=== PATIENT | male | born 1950 | race Caucasian/White ===

== ENCOUNTER → 2024-03-16 07:46 | Outpatient (REF) | payer MEDICARE, OTHER, SELFPAY | LOC: RCS 07:46 | PROVIDERS: ATTENDING PHYSICIAN Internal Medicine Cardiovascular Disease; FAMILY PHYSICIAN Family Medicine | DX: I34.0 Nonrheumatic mitral (valve) insufficiency (principal) | CPT/HCPCS: 93306 ==

== ENCOUNTER → 2024-05-14 11:03 | Outpatient (REF) | payer MEDICARE, OTHER, SELFPAY | LOC: RAD 11:03 | PROVIDERS: ATTENDING PHYSICIAN Student in an Organized Health Care Education/Training Program; FAMILY PHYSICIAN Specialist | DX: I48.91 Unspecified atrial fibrillation (principal) | CPT/HCPCS: 75572; Q9967 ==

== ENCOUNTER → 2024-06-19 09:00 | Outpatient (REF) | payer MEDICARE, OTHER, SELFPAY | LOC: SDSPAT 09:00 | PROVIDERS: ATTENDING PHYSICIAN Internal Medicine Cardiovascular Disease; FAMILY PHYSICIAN Family Medicine; OTHER PHYSICIAN Student in an Organized Health Care Education/Training Program | DX: I48.21 Permanent atrial fibrillation (principal) | CPT/HCPCS: 93005 ==

== ENCOUNTER 2024-07-01 10:04 | Day surgery (SDC) | payer MEDICARE, OTHER, SELFPAY ==
[2024-06-19 08:50] VITALS: BMI 25.5
--- NOTE | 2024-06-19 09:10 | HPS.HSE ---
Family Physician
-
Family Physician: NO INTERVIEW UNKNOWN
Chief Complaint
-
Persistent atrial fibrillation.
History of Present Illness
The patient is a 74 year old male presenting today for persistent atrial fibrillation. The patient reports no significant symptoms associated with his arrhythmia. He previously underwent an ablation for this diagnosis in 2009. He is rate
controlled without the current use of pharmacological therapy. He is compliant with Dabigatran for oral anticoagulation due to a CHADS-VASc of 4. He was previously diagnosed with prostate cancer, for which he underwent a radical perineal
prostatectomy and radiation therapy in 2022. His urologist, Dr. Trev Xiao, has expressed concerns for future severe prostate bleeding while he remains on oral anticoagulation. His HAS-BLED score is 3. Given that he is at an increased risk for
thromboembolic events as well as bleeding with continued Dabigatran use, it is recommended he proceed with Watchman implantation. In preparation for future Watchman, he will undergo a transesophageal echocardiogram first. He denies any current
complaints today such as chest pain, shortness of breath at rest, nausea, vomiting, diarrhea, lightheadedness, dizziness, cough, sore throat, or fever.
Medical History
Past Medical History
Past Medical History: Reports Other
Additional Past Medical History:
1. Persistent atrial fibrillation, status post ablation 2009; oral anticoagulation with Dabigatran.
2. Hypertension.
3. Hypercholesterolemia.
4. Coronary artery disease.
5. Mild mitral valve prolapse.
6. Moderate mitral regurgitation.
7. Mild aortic regurgitation.
8. Moderate tricuspid regurgitation.
9. Asthma, mild and persistent.
10. Bronchitis per chest CT 04/2024.
11. Right upper lobe pulmonary nodule.
12. Hepatic and splenic cysts.
13. 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
14. Vestibular schwannoma, status post resection 1993, with residual right sided facial droop.
15. Balance difficulties.
16. Chronic compression fracture of L1.
17. Multilevel degenerative disc disease.
18. Osteoarthritis.
19. Prostate cancer, 2022, status post radical perineal prostatectomy and radiation.
20. Daily alcohol.
Past Surgical History: Reports Other
Additional Past Surgical History:
1. Cardiac catheterization and atrial fibrillation ablation.
2. Transesophageal echocardiogram.
3. Vestibular schwannoma excision.
4. Radical perineal prostatectomy.
5. Colonoscopy.
Social History
Tobacco: Non-smoker
Alcohol: Daily (He reportedly drinks 1- 5oz glass of wine daily. )
Personal:
Living: Other (He lives with his in a 2 story home. )
Family History
Family History: Not pertinent
Allergies / Home Medications
Allergy/Medication List:
Home medications:
1. Albuterol sulfate 2 puffs inhaled four times a day as needed.
2. Atorvastatin 80 mg p.o. at 2 PM.
3. Dabigatran 150 mg p.o. twice a day.
4. Fluticasone propionate 1 spray intranasal daily.
5. Montelukast 10 mg p.o. daily.
6. Tamsulosin 0.4 mg p.o. at bedtime.
7. Trelegy Ellipta 100-62.5-25 mcg inhaler, 1 inhalation at bedtime.
Allergies: Environmental. No known drug allergies.
Review of Systems
-
A 12 point ROS was completed and negative except as noted: Yes
Physical Exam
Vital Signs
Blood pressure: 157/86. Heart rate 56. Respirations 18. Pulse ox 97% on room air.
Height 5 feet, 7 inches. Weight 73.7 kg. BMI 25.4.
Physical Exam
General: Well Developed, Well Nourished and No Apparent Distress
HEENT: Moist mucous membranes, PERRLA, Hearing Impaired and Other (Chronic right sided facial droop. )
Respiratory: Other (Wheeze of bilateral lung apices, cleared with cough. )
Cardiac: Irregular Rhythm
GI: Soft, Non Tender and Non Distended
Musculoskeletal: No Edema and Normal Gait & Station
Skin: Warm and Dry
Neuro: AO x 3 and Nonfocal/grossly intact
Laboratory Results
-
EKG 06/19/2024: Atrial fibrillation with slow ventricular response. Left anterior fascicular block.
Echocardiogram 03/16/2024: Normal left ventricular size and systolic function. Mild concentric left ventricular hypertrophy. LV ejection fraction is 60-65% by Tenorio's method of discs. Mildly dilated right ventricle with normal systolic function.
Severely dilated right atrium. Mild prolapse of the posterior mitral valve leaflet. Moderate mitral regurgitation. Aortic sclerosis without stenosis. Mild aortic regurgitation. Moderate tricuspid regurgitation. Estimated pulmonary artery pressure of
53 mmHg, assuming a right atrial pressure of 8 mmHg. Mildly dilated aortic root and ascending aorta. No significant change since the prior study of 10/11/2020.
Impression/Plan
-
IMPRESSION/PLAN:
1. Persistent atrial fibrillation: In preparation for future Watchman implant, the patient will undergo a transesophageal echocardiogram with Dr. Ailin Allen on 07/01/2024. The benefits and risks of the procedure have been explained to the
patient. The patient understands these risks and wishes to proceed.
[2024-07-01] MEDS: PRADAXA 150 MG PO (11:55)
== END 2024-07-01 11:58 | disposition home or self-care (01) ==
LOC: CATH 10:04
PROVIDERS: ATTENDING PHYSICIAN Internal Medicine Cardiovascular Disease; FAMILY PHYSICIAN Family Medicine; OTHER PHYSICIAN Internal Medicine Cardiovascular Disease
DX: I48.19 Other persistent atrial fibrillation (principal); Z79.02 Long term (current) use of antithrombotics/antiplatelets; Z85.46 Personal history of malignant neoplasm of prostate; Z90.79 Acquired absence of other genital organ(s); Z92.3 Personal history of irradiation; I10 Essential (primary) hypertension; E78.00 Pure hypercholesterolemia, unspecified; I25.10 Atherosclerotic heart disease of native coronary artery without angina pectoris; I08.3 Combined rheumatic disorders of mitral, aortic and tricuspid valves; J45.909 Unspecified asthma, uncomplicated; Z86.73 Personal history of transient ischemic attack (TIA), and cerebral infarction without residual deficits; M19.90 Unspecified osteoarthritis, unspecified site; I70.0 Atherosclerosis of aorta
CPT/HCPCS: 93312; 93320; 93325

== ENCOUNTER 2024-08-18 05:52 | Inpatient (IN) | payer MEDICARE, OTHER, SELFPAY ==
[2024-08-11 10:03] VITALS: BMI 25.8
[2024-08-11 10:37] LABS: % Basophils 1.4 % (0-2); % Eosinophils 9.4 % (0-6); % Immature Granulocytes 0.2 % (0-0.5); % Lymphocytes 17.1 % (20.5-51.1); % Monocytes 12.7 % (1.7-9.3); % Neutrophils 59.2 % (42.2-75.2); Absolute Basophils 0.1 10^3/uL (0-0.2); Absolute Eosinophils 0.4 10^3/uL (0-0.7); Absolute Lymphocytes 0.7 10^3/uL (1.2-3.4); Absolute Monocytes 0.6 10^3/uL (0.1-0.6); Absolute Neutrophils 2.6 10^3/uL (1.4-6.5); Hematocrit 37.6 % (39.0-52.0); Hemoglobin 12.2 g/dL (13.0-18.0); INR 1.19; Mean Corp Hgb Conc. 32.4 g/dL (33.0-37.0); Mean Corpuscular Hgb 29.2 pg (27.0-31.0); Nucleated Red Blood Cells % 0 % (-); PT 15.4 Sec (11.4-14.6); Platelet Count 133 10^3/uL (130-400); Red Blood Cell Count 4.18 10^6/uL (4.70-6.10); Red Cell Dist. Width 14.6 % (11.5-14.5); White Blood Cell Count 4.3 10^3/uL (4.8-10.8)
[2024-08-11 10:50] LABS: ALT (SGPT) 25 U/L (0-50); AST (SGOT) 26 U/L (17-59); Alkaline Phosphatase 103 U/L (38-126); Blood Urea Nitrogen 16 mg/dl (9-20); Carbon Dioxide 26 mmol/L (22-30); Chloride 106 mmol/L (98-107); Estimated Creatinine Clearance 76 ml/min; Glucose 101 mg/dl (70-99); Potassium 4.2 mmol/L (3.5-5.1); Sodium 139 mmol/L (135-145); Total Bilirubin 1.3 mg/dl (0.2-1.3); Total Protein 6.7 g/dl (6.3-8.2); eGFR > 60.00
[2024-08-18] VITALS (24 sets, daily range): BP systolic 132–160; BP diastolic 76–100
--- NOTE | 2024-08-18 09:01 | ITS.CL.PN ---
[facility] - Procedure Note
Procedure
Procedure Note:
WATCHMAN LEFT ATRIAL APPENDAGE OCCLUSION REPORT
Date of Procedure: 08/18/2024
Referring: Dr. Luis Nieves MD
Indication: atrial fibrillation with high bleeding risk and high stroke risk
Operators: Rafal Black MD, PhD (interventional cardiology); Dr. Dudley Olsen (electrophysiology); Dr. Dereje Colon DO (cardiac imaging)
Anesthesia: general anesthesia provided by the anesthesia staff
PROCEDURE: left atrial appendage occlusion with a 31 mm Watchman FLX
ACCESS: 14F right common femoral vein (closure: figure of eight stitch)
ULTRASOUND GUIDED VASCULAR ACCESS (right femoral vein): Ultrasound was utilized for vascular access. The vessel was visualized under ultrasound and noted to be patent. An image of the vessel was stored permanently in the patient's medical record.
Under direct ultrasound guidance, vascular access was obtained using a modified Seldinger technique and a [ ] Mosotho sheath was placed.
HEMODYNAMIC DATA: LA 9 mmHg (increased to 16 mmHg after 250 cc fluid bolus)
PROCEDURE NARRATIVE:
The patient was intubated and sedated by anesthesiology and then prepped and draped in standard sterile fashion. A KATY probe was placed by cardiology and imaging performed demonstrating no left atrial appendage thrombus and no pericardial effusion.
Under ultrasound guidance, the right femoral vein was accessed by Dr. Black with a 9F sheath placed. 3000 units heparin was administered.
The9F sheath was exchanged over a [employer] A RF wire for the Watchman double curve sheath which was advanced to the SVC. The Watchman sheath was then pulled back under fluoroscopic and echo guidance until an appropriate inferior and posterior position
on the septum was achieved. During brief RF application, the wire was advanced through the interatrial septum into the left atrium. The wire was placed in the left upper pulmonary vein as confirmed by fluoroscopy and KATY. The dilator and sheath
easily tracked across the septum allowing placement of the sheath in the left atrium. Left atrial pressure was measured at 9 mmHg. 250 cc fluid was administered and the left atrial pressure increased to 16 mmHg.
A 5F pigtail catheter was advanced through the sheath and placed in the left atrial appendage, and an appendage gram was performed demonstrating anatomy suitable for a 31 mm Watchman FLX device. The device was prepped on the back table, the pigtail
catheter removed, and the device delivered via the sheath to the left atrial appendage by Dr. Olsen. The device was deployed slowly under continuous fluoroscopic and KATY visualization. After deployment, KATY imaging was performed to assess PASS
criteria. The device demonstrated excellent positioning, anchor stability on tug test, appropriate sizing with 15-25% compression, and appropriate seal with no leak at 0, 45, 90, or 135 degrees. Given PASS criteria were met, the device was then
released.
The delivery system retracted back into the sheath and removed from the body. The sheath was retracted into the right atrium with KATY demonstrating no significant R-L shunt or pericardial effusion. The ICE catheter was removed from the body. The
sheaths were removed and the venotomy closed with [id number] knot. Protamine 40 mg was given. The patient was extubated and tolerated the procedure well.
RADIATION: dose 56.38 mGy; DAP 6.19 Gy*cm2; fluoroscopy time 8.0 min
CONCLUSIONS
1. transseptal puncture with KATY guidance
2. successful deployment of a 31 mm Watchman FLX device under fluoroscopic and KATY guidance
RECOMMENDATIONS:
1. anticoagulation with dabigatran 150 BID for 3 months
2. repeat KATY in 3 months
Copy to: Dr. Luis Nieves MD (rehab director occupational therapist); Dr. Michael Peña MD (PCP); Dr. Trev Xiao MD (Urologist)
Signed: Rafal Black MD, PhD
--- NOTE | 2024-08-18 09:08 | WATCHMAN.MD ---
Watchman Implant
-
Watchman DENNIS occlusion device implantation:
Mr. Olivares is a 74 yrs old man with high risk of bleeding and advised to stop anticoagulation therapy is here for Watchman implantation.
Date of Procedure:
08/18/24
Indications:
High risk of bleeding with anticoagulation therapy for stroke prevention
Pre-Operative Diagnosis:
Atrial fibrillation with high risk of bleeding
Post-Operative Diagnosis:
Atrial fibrillation with high risk of bleeding
Procedure Performed:
Left atrial appendage occlusion with Watchman implantation (31 mm Watchman FLX Pro left atrial appendage closure device)
Performing Physicians:
KATY: Dereje Colon M.D.
Transseptal doughnut machine operator helper: Rafal Black M.D.
Implanter: Dudley Olsen M.D.
Anesthesia:
See anesthesia records
Detailed Description of the Procedure:
Written informed consent was obtained from the patient after a full explanation of the risks and benefits of the procedure including the risks of sedation and anesthesia.
The patient was brought to the electrophysiology laboratory in stable condition in fasting state. Continuous electrocardiographic and hemodynamic monitoring was initiated.
The initial rhythm was atrial fibrillation.
The procedure site was meticulously prepared with surgical scrub and allowed to dry with no pooling. Sterile draping was applied to cover the procedure site. The image intensifier was draped with sterile bag and positioned over the patient. After
infusion of local anesthetic, vascular access was obtained under ultrasound guidance and sheaths were placed over guide wire as detailed below.
Sheath and Catheter Placement:
Sheaths:
��������������� Watchman delivery sheath via right femoral vein.
Catheters:
��������������� Watchman catheter
Trans-septal Puncture:
Heparin was initiated and infused to maintain appropriate ACT.
A VersaCross RF pigtail guidewire was advanced through the 8-Slovak sheath in the right femoral vein into the superior vena cava under fluoroscopic, KATY guidance. The 8Fr was upgraded the Watchman sheath and was advanced into the superior vena cava
over the guide wire. A transseptal VersaCross RF pigtail via Faradrive connect system was utilized to perform the trans-septal puncture. The apparatus was withdrawn until it was in contact with the fossa ovalis. The position was adjusted based on
fluoroscopy and ultrasound images from KATY. Under fluoroscopic, hemodynamic and KATY ultrasound guidance, left atrium was cannulated by applying the radiofrequency energy. The right atrial and left atrial pressure was monitored. A guide wire was
placed and was advanced into the left superior pulmonary vein. Both the sheath and the dilator was advanced into the left atrium. The dilator was withdrawn. Blood was aspirated from the sheath and arterial blood confirmed. The sheath was flushed.
Saline injection noted into the left atrium on KATY. The LA pressure was recorded. The saline injection was noted in the LA on the KATY. A curved pig tail was advanced over the guide wire into the left atrium and the wire was removed.
Left atrial appendage atriography:
The pigtail was advanced into the DENNIS and was confirmed on fluoroscopy and KATY. The contrast was injected and the DENNIS shape was recorded in GONZALES /Caudal view (21/21 degrees). The size of the DENNIS was again checked and confirmed reviewing the KATY and
the fluoroscopy along with previously obtained CT scan images.
Watchman Deployment:
The Watchman delivery sheath was advanced into the DENNIS over the pigtail till the right marker was at the location of the orifice line marked on the screen. The pigtail was removed and the Watchman delivery system was advanced through the sheath into
the DENNIS till it was aligned with the outer sheath marker inside the DENNIS. The watchman sheath was clicked with the outer sheath. Once acceptable location achieved, the outer sheath was pulled back keeping the device steady at the DENNIS location till a
ball of the device was formed under fluoroscopic guidance. The whole system was advanced further into the DENNIS till adequate depth is achieved into the DENNIS.� The DENNIS occluder was deployed and expanded adequately anchoring to the DENNIS. The device was
kept anchored with stable pressure to that location for 10 seconds.
The KATY image confirmed adequate expansion. The tug test was done that showed the device is anchored well and is not able to come out. The compression was 15% to 25% on the three sides. There was no significant leak noted on the Doppler via KATY.
A contrast injection was given that showed excellent occlusion of the DENNIS.
The device was deployed by unscrewing the Watchman device and releasing from the connecting wire. The wire was pulled back into the sheath and the sheath was pulled out of the LA.
Implanted device:
WATCHMAN FLX Pro � 31mm
Procedure End
KATY study was done again that showed no epicardial accumulation that was unchanged from earlier. A repeated images showed no change in the pericardial space. No complications noted.
Following the completion of the deployment, catheters were removed. Protamine 40 mg was given at the end of the procedure and ACT was checked repeatedly. The sheath was removed and hemostasis achieved with Figure of 8 suture and manual compression
after acceptable ACT is achieved.
Left atrial Pressure:
Mean LA pressure was 14mmHg
Estimated Blood loss:
10 cc
Specimens Removed:
None.
Implants / Devices:
None
Urine output:
None
Packs / Drains/ Tubes:
None
Instrument / Sponge Count Correct:
Yes
Complications of the Procedure:
None
Condition of Patient at Time of Transfer:
Hemodynamically stable with no neurological or vascular compromise.
Summary:
Successful implantation of the left atrial occlusion device (WATCHMAN FLX Pro� 31mm)
Post procedure Plan for anticoagulation:
Continue Pradaxa 150 mg BID for 3 months.
In 3 months, based on KATY, will plan to discontinue Pradaxa and start ASA 81 mg indefinitely. If no bleeding can use Plavix with ASA for initial 3 months.
[2024-08-18 11:09] LABS: ACT-LR - POC > 397 Seconds (116-155)
--- NOTE | 2024-08-18 14:35 | W.PN.UPDATE ---
Update Note
Progress Note Update
74 yo male s/p Watchman device (same day). He denies cp, sob, jayden diet, voiding, amb w/o dizziness, R fem site c/d/i no HT, soft, EKG Afib. He will continue Pradaxa until after f/u KATY in 3 mo. Activity restrictions reviewed. He will f/u DIRECTOR OF FUNDRAISING in 2
weeks. He is for d/c home after 2pm.
--- NOTE | 2024-08-18 14:49 | W.DS.TRANS ---
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
-
Discharge Instructions:
Discharge Diagnosis/Procedures Watchman implant
Diet Low Cholesterol
Driving Restrictions No driving for 24 hours
Others Tests Follow up KATY has been scheduled at [facility] on 11/11/2024. You will receive a call
from Dr. Olea's office to review date and
instructions.
Instructions:
Stand-Alone Forms: DC Instructions- Cath/EP Lab
Changes to Home Medications: No
Discharge Medications:
DC Medications w/original date entered in [facility]
montelukast 10 mg tablet 10 mg PO DAILY Allergies 11/18/18
fluticasone fur. 100 mcg-umeclid 62.5 mcg-vilant 25 mcg inhalat.powder (Trelegy Ellipta) 1 inh inhalation HS Lung/breathing issues 06/12/22
tamsulosin 0.4 mg capsule 0.4 mg PO HS 06/17/24
albuterol sulfate 90 mcg/actuation aerosol inhaler 2 puff inhalation QID PRN SOB 06/19/24
atorvastatin 80 mg tablet 80 mg PO DAILY@1400 06/19/24
fluticasone propionate 50 mcg/actuation nasal spray,suspension 1 spray intranasal DAILY 06/19/24
dabigatran etexilate 150 mg capsule (Pradaxa) 150 mg PO BID 08/06/24
Home Medication Changes
Pending Results: No
== END 2024-08-18 14:49 | disposition home or self-care (01) | DRG 274 ==
LOC: CATH-IN 05:52
PROVIDERS: Student in an Organized Health Care Education/Training Program; ADMITTING PHYSICIAN Internal Medicine Cardiovascular Disease; FAMILY PHYSICIAN Family Medicine
PROC: B24BZZ4 Ultrasonography of Heart with Aorta, Transesophageal (ICD-10-PCS; 2024-08-18)
PROC: 02L73DK Occlusion of Left Atrial Appendage with Intraluminal Device, Percutaneous Approach (ICD-10-PCS; 2024-08-18)
DX: I48.21 Permanent atrial fibrillation (principal); Z00.6 Encounter for examination for normal comparison and control in clinical research program; I51.3 Intracardiac thrombosis, not elsewhere classified; C61 Malignant neoplasm of prostate; I10 Essential (primary) hypertension; E78.5 Hyperlipidemia, unspecified; N40.0 Benign prostatic hyperplasia without lower urinary tract symptoms; J45.909 Unspecified asthma, uncomplicated; R91.1 Solitary pulmonary nodule; Z90.79 Acquired absence of other genital organ(s); Z86.73 Personal history of transient ischemic attack (TIA), and cerebral infarction without residual deficits; Z92.21 Personal history of antineoplastic chemotherapy; Z92.3 Personal history of irradiation; Z79.02 Long term (current) use of antithrombotics/antiplatelets
CPT/HCPCS: 33340; 36415; 80053; 85025; 85347; 85610; 86850; 86900; 86901; 93005; 93355; C1892; Q9967

== ENCOUNTER → 2024-10-12 09:52 | Outpatient (REF) | payer MEDICARE, OTHER, SELFPAY | LOC: RCS 09:52 | PROVIDERS: ATTENDING PHYSICIAN Nurse Practitioner; FAMILY PHYSICIAN Family Medicine | DX: R06.02 Shortness of breath (principal) | CPT/HCPCS: 93306 ==

== ENCOUNTER → 2024-10-20 11:09 | Outpatient (REF) | payer MEDICARE, OTHER, SELFPAY | LOC: RCS 11:09 | PROVIDERS: ATTENDING PHYSICIAN Nurse Practitioner; FAMILY PHYSICIAN Family Medicine | DX: R06.09 Other forms of dyspnea (principal); I48.91 Unspecified atrial fibrillation | CPT/HCPCS: 78452; 93017; A9500; J2785 ==

== ENCOUNTER → 2024-11-18 09:23 | Outpatient (REF) | payer MEDICARE, OTHER, SELFPAY | LOC: SDSPAT 09:23 | PROVIDERS: ATTENDING PHYSICIAN Internal Medicine Cardiovascular Disease; FAMILY PHYSICIAN Family Medicine | DX: I48.21 Permanent atrial fibrillation (principal) | CPT/HCPCS: 93005 ==

== ENCOUNTER 2024-12-02 07:38 | Day surgery (SDC) | payer MEDICARE, OTHER, SELFPAY ==
[2024-11-18 09:41] VITALS: BMI 26.6
== END 2024-12-02 12:02 | disposition home or self-care (01) ==
LOC: CATH 07:38
PROVIDERS: ATTENDING PHYSICIAN Internal Medicine Cardiovascular Disease; FAMILY PHYSICIAN Family Medicine; REFERRING PHYSICIAN Internal Medicine Cardiovascular Disease
DX: I48.19 Other persistent atrial fibrillation (principal); I08.3 Combined rheumatic disorders of mitral, aortic and tricuspid valves; Z86.73 Personal history of transient ischemic attack (TIA), and cerebral infarction without residual deficits; I10 Essential (primary) hypertension; E78.5 Hyperlipidemia, unspecified; C61 Malignant neoplasm of prostate; N40.0 Benign prostatic hyperplasia without lower urinary tract symptoms; J45.909 Unspecified asthma, uncomplicated; Z79.02 Long term (current) use of antithrombotics/antiplatelets
CPT/HCPCS: 93312; 93320; 93325

== ENCOUNTER → 2024-12-04 09:09 | Outpatient (REF) | payer MEDICARE, OTHER, SELFPAY | LOC: RAD 09:09 | PROVIDERS: ATTENDING PHYSICIAN Nurse Practitioner Acute Care; FAMILY PHYSICIAN Family Medicine; REFERRING PHYSICIAN Internal Medicine Cardiovascular Disease | DX: I48.0 Paroxysmal atrial fibrillation (principal) | CPT/HCPCS: 75572; Q9967 ==

== ENCOUNTER 2025-01-05 05:52 | Inpatient (IN) | payer MEDICARE, OTHER, SELFPAY ==
[2025-01-04 12:58] VITALS: BMI 25.5
--- NOTE | 2025-01-04 13:15 | HPS.HSE ---
Family Physician
-
Family Physician: Michael Peña
Chief Complaint
-
Permanent atrial fibrillation.
History of Present Illness
The patient is a 74 year old male presenting today for permanent atrial fibrillation. The patient reports no significant symptoms associated with his arrhythmia. He previously underwent an ablation for this diagnosis in 2009. He is rate
controlled without the current use of pharmacological therapy. He is compliant with Dabigatran for oral anticoagulation due to a CHADS-VASc of 3. He was previously diagnosed with prostate cancer, for which he underwent a radical perineal
prostatectomy and radiation therapy in 2022. His urologist, Dr. Trev Xiao, had expressed concerns previously for future severe prostate bleeding while the patient remains on oral anticoagulation. The patient's overall HAS-BLED score is 3. He
proceeded with a recommended Watchman implantation in July 2024. A post-Watchman transesophageal echocardiogram on 12/02/2024 revealed that the atrial appendage is bilobed and that one of the lobes was not fully isolated by Watchman device. A chest
CTA also confirmed this on 12/04/2024. He will proceed with a recurrent Watchman implantation in the hopes of coming off oral anticoagulation one day. He denies any current complaints today such as chest pain, shortness of breath at rest, nausea,
vomiting, diarrhea, lightheadedness, dizziness, cough, sore throat, or fever.
Medical History
Past Medical History
Past Medical History: Reports Other
Additional Past Medical History:
1. Permanent atrial fibrillation, status post ablation 2009, and Watchman implant 07/2024; oral anticoagulation with Dabigatran.
2. Hypertension.
3. Hypercholesterolemia.
4. Coronary artery disease.
5. Mild-moderate mitral regurgitation.
6. Mild aortic regurgitation.
7. Mild tricuspid regurgitation.
8. Pericardial effusion, asymptomatic.
8. Asthma, mild and persistent.
9. Bronchitis per chest CT 04/2024.
10. Right upper lobe pulmonary nodule.
11. Hepatic and splenic cysts.
12. 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
13. Vestibular schwannoma, status post resection 1993, with residual right sided facial palsy.
14. Balance difficulties.
15. Chronic compression fracture of L1.
16. Multilevel degenerative disc disease.
17. Osteoarthritis.
18. Prostate cancer, 2022, status post radical perineal prostatectomy and radiation.
19. BPH.
20. Chronic anemia.
21. Mild leukopenia and thrombocytopenia.
22. Daily alcohol.
Past Surgical History: Reports Other
Additional Past Surgical History:
1. Watchman implant
2. Cardiac catheterization and atrial fibrillation ablation.
3. Transesophageal echocardiogram x2.
4. Vestibular schwannoma excision.
5. Radical perineal prostatectomy.
6. Colonoscopy.
Social History
Tobacco: Non-smoker
Alcohol: Daily (He reportedly drinks 1- 5oz glass of wine daily. )
Personal:
Living: Other (He lives with his in a 2 story home.)
Family History
Family History: Not pertinent
Allergies / Home Medications
Allergy/Medication List:
Home medications:
1. Albuterol sulfate 2 puffs inhaled four times a day as needed.
2. Atorvastatin 80 mg p.o. at 2 PM.
3. Dabigatran 150 mg p.o. twice a day.
4. Fluticasone propionate 1 spray intranasal daily.
5. Montelukast 10 mg p.o. daily.
6. Tamsulosin 0.4 mg p.o. at bedtime.
7. Trelegy Ellipta 100-62.5-25 mcg inhaler, 1 inhalation at bedtime.
8. Furosemide 20 mg p.o. daily at 3 PM.
Allergies: Environmental. No known drug allergies.
Review of Systems
-
A 12 point ROS was completed and negative except as noted: Yes
Physical Exam
Vital Signs
Blood pressure: 131/68. Heart rate 62. Respirations 18. Pulse ox 99% on room air.
Height 5 feet, 7 inches. Weight 73.8 kg. BMI 25.5.
Physical Exam
General: Well Developed, Well Nourished and No Apparent Distress
HEENT: Moist mucous membranes, PERRLA, Hearing Impaired and Other (Chronic right sided facial droop. )
Respiratory: Clear
Cardiac: Irregular Rhythm
GI: Soft, Non Tender and Non Distended
Musculoskeletal: No Edema and Normal Gait & Station
Skin: Warm and Dry
Neuro: AO x 3 and Nonfocal/grossly intact
Laboratory Results
-
DIAGNOSTIC STUDIES as of 01/04/2025: White blood cell count 3.7. Hemoglobin 11.8. Platelet count 123,000. PT 16.5. INR 1.31. Sodium 138. Potassium 4.1. BUN 20. Creatinine 0.7. Glucose 102. Calcium 8.9. AST 26. ALT 22. Albumin 4.0. Type and screen O
positive.
Transesophageal echocardiogram 12/02/2024: Normal left ventricular systolic function. Estimated ejection fraction 55 to 60%. Watchman device intact. It appears atrial appendage is bilobed and one of the lobes is not fully isolated by Watchman
device. No evidence of thrombus in the left atrium the left atrial appendage. Mild to moderate eccentric mitral regurgitation. Mild aortic regurgitation. Mild tricuspid regurgitation. Small to moderate size pericardial effusion. Compared to the
previous echo from 10/12/2024, pericardial effusion is similar. May be slightly greater in size. Compared to the arminda-procedure KATY on 08/18/2024, an isolated area of the appendage is now reported.
Nuclear stress test 10/20/2024: No reversible defects to suggest ischemia. Moderate-sized perfusion defects involving the inferior and lateral aguilar suggestive of soft tissue attenuation. Ejection fraction 65%. Moderate risk study due to
pharmacologic stress.
Impression/Plan
-
IMPRESSION/PLAN:
1. Permanent atrial fibrillation: The patient will proceed with a Watchman implant on 01/05/[address] Rafal Black. The benefits and risks of the procedure have been explained to the patient. The patient understands these risks and wishes to
proceed. He is aware to hold his Dabigatran and Furosemide the morning of his procedure.
[2025-01-04 13:38] LABS: INR 1.31; PT 16.5 Sec (11.4-14.6)
[2025-01-04 13:58] LABS: ALT (SGPT) 22 U/L (0-50); AST (SGOT) 26 U/L (17-59); Albumin 4.0 g/dl (3.5-5.0); Alkaline Phosphatase 92 U/L (38-126); Blood Urea Nitrogen 20 mg/dl (9-20); Calcium 8.9 mg/dl (8.4-10.2); Carbon Dioxide 26 mmol/L (22-30); Chloride 108 mmol/L (98-107); Estimated Creatinine Clearance 87 ml/min; Glucose 102 mg/dl (70-99); Hematocrit 36.2 % (39.0-52.0); Hemoglobin 11.8 g/dL (13.0-18.0); Mean Corp Hgb Conc. 32.6 g/dL (33.0-37.0); Mean Corpuscular Volume 89.8 fL (80.0-94.0); Nucleated Red Blood Cells % 0 % (-); Platelet Count 123 10^3/uL (130-400); Potassium 4.1 mmol/L (3.5-5.1); Red Cell Dist. Width 15.2 % (11.5-14.5); Sodium 138 mmol/L (135-145); Total Protein 6.6 g/dl (6.3-8.2); eGFR > 60.00
[2025-01-05] VITALS (17 sets, daily range): BP systolic 117–149; BP diastolic 36–97
--- NOTE | 2025-01-05 09:27 | ITS.CL.PN ---
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
Procedure
Procedure Note:
WATCHMAN LEFT ATRIAL APPENDAGE OCCLUSION REPORT
Date of Procedure: 01/05/2025
Referring: Dr. Luis Nieves MD
Indication: Atrial fibrillation with high bleeding risk and high stroke risk, residual uncovered left atrial appendage side lobe after initial closure of primary lobe with Watchman FLX 31
Operators: Rafal Black MD, PhD (interventional cardiology); Dr. Dudley Olsen MD (electrophysiology); Dr. Nash Antunez MD (cardiac imaging)
Anesthesia: general anesthesia provided by the anesthesia staff
PROCEDURE: left atrial appendage occlusion with a 20 mm Watchman FLX (note: this was used to cover a residual uncovered lobe after prior initial Watchman implant 08/18/24)
ACCESS:
1. 14F right common femoral vein (closure: figure of eight stitch) - Ultrasound was utilized for vascular access. The vessel was visualized under ultrasound and noted to be patent. An image of the vessel was stored permanently in the patient's
medical record. Under direct ultrasound guidance, vascular access was obtained using a modified Seldinger technique and a 8 Slovenian sheath was placed.
HEMODYNAMIC DATA
LA 13 mmHg
PROCEDURE NARRATIVE:
The patient was intubated and sedated by anesthesiology and then prepped and draped in standard sterile fashion. A KATY probe was placed by cardiology and imaging performed demonstrating no left atrial appendage thrombus and no pericardial effusion.
Under ultrasound guidance, the right femoral vein was accessed by Dr. Olsen with an 8F sheath placed. Heparin was administered to achieve ACT>300.
The 8F sheath was exchanged over a Everpix RF wire for the Watchman double curve sheath which was advanced to the SVC. The Watchman sheath was then pulled back under fluoroscopic and echo guidance until an appropriate inferior and posterior position
on the septum was achieved. Initially the sheath passed on its own through the prior transseptal site but this was found to be too inferior and thus the sheath was pulled back to the RA. A more inferior position was then achieved with KATY guidance.
During brief RF application, the wire was advanced through the interatrial septum into the left atrium. The wire was placed in the left upper pulmonary vein as confirmed by fluoroscopy and KATY. The dilator and sheath easily tracked across the septum
allowing placement of the sheath in the left atrium. Left atrial pressure was measured at 13 mmHg. 250 cc fluid was administered.
A 5F pigtail catheter was advanced through the sheath and placed in the residual lob of the left atrial appendage. An appendage gram was performed demonstrating anatomy suitable for a 20 mm Watchman FLX device. The device was prepped on the back
table, the pigtail catheter removed, and the device delivered via the sheath to the left atrial appendage by Dr. Black. The device was deployed slowly under continuous fluoroscopic and KATY visualization. After deployment, KATY imaging was performed
to assess PASS criteria. The device demonstrated excellent positioning, anchor stability on tug test, appropriate sizing with appropriate compression, and appropriate seal with no leak at 0, 45, 90, or 135 degrees. Given PASS criteria were met, the
device was then released.
The delivery system retracted back into the sheath and removed from the body. The sheath was retracted into the right atrium with KATY demonstrating no significant R-L shunt or pericardial effusion. The ICE catheter was removed from the body. The
sheaths were removed and the venotomy closed with [id number] knot. The patient was extubated and tolerated the procedure well.
CONCLUSIONS
1. transseptal puncture with KATY guidance
2. successful deployment of a 20 mm Watchman FLX device under fluoroscopic and KATY guidance to cover a residual uncovered lobe after prior initial Watchman implant 08/18/24
RECOMMENDATIONS:
1. anticoagulation with dabigatran for 3 months
2. repeat KATY in 3 months
Copy to: Dr. Luis Nieves MD (systems applications programming lead); Dr. Micahel Peña MD (PCP)
Signed: Rafal Black MD, PhD
--- NOTE | 2025-01-05 10:06 | WATCHMAN.MD ---
Watchman Implant
-
Watchman DENNIS occlusion device implantation:
Mr. Olivares is a 74 yrs old gentleman with bleeding and advised to stop anticoagulation therapy s/p Watchman implant on 08/18/24 and was noted to have an additional lobe of the DENNIS that was not covered by the watchman and is advised an
additional watchman implant and is here for Watchman implantation.
Date of Procedure:
01/05/25
Indications:
High risk of bleeding with anticoagulation therapy for stroke prevention
Pre-Operative Diagnosis:
Atrial fibrillation with high risk of bleeding
Post-Operative Diagnosis:
Atrial fibrillation with high risk of bleeding
Procedure Performed:
Left atrial appendage occlusion with Watchman implantation (20 mm Watchman FLX Pro left atrial appendage closure device)
Performing Physicians:
KATY: Nash Antunez M.D.
Transseptal regional owner operator truck driver: Dudley Olsen MD.
Implanter: Rafal Black MD
Anesthesia:
See anesthesia records
Detailed Description of the Procedure:
Written informed consent was obtained from the patient after a full explanation of the risks and benefits of the procedure including the risks of sedation and anesthesia.
The patient was brought to the electrophysiology laboratory in stable condition in fasting state. Continuous electrocardiographic and hemodynamic monitoring was initiated.
The initial rhythm was atrial fibrillation.
The procedure site was meticulously prepared with surgical scrub and allowed to dry with no pooling. Sterile draping was applied to cover the procedure site. The image intensifier was draped with sterile bag and positioned over the patient. After
infusion of local anesthetic, vascular access was obtained under ultrasound guidance and sheaths were placed over guide wire as detailed below.
The CT scan image of the DENNIS and the previously implanted watchman was analyzed and rendered in MIP in 3 D using [employer] software.
Sheath and Catheter Placement:
In the right femoral vein, an 8-Israeli sheath was placed for Watchman placement procedure.
Sheaths:
��������������� Watchman delivery sheath upgraded from 8Fr sheath.
Catheters:
��������������� Watchman catheter
Trans-septal Puncture:
Heparin was initiated and infused to maintain appropriate ACT.
A VersaCross RF pigtail guidewire was advanced through the 8-Israeli sheath in the right femoral vein into the superior vena cava under fluoroscopic, KATY guidance. The 8Fr was upgraded the Watchman sheath and was advanced into the superior vena cava
over the guide wire. A transseptal VersaCross RF pigtail via [employer] connect system was utilized to perform the trans-septal puncture. The apparatus was withdrawn until it was in contact with the fossa ovalis. The position was adjusted based on
fluoroscopy and ultrasound images from KATY.
The apparatus fell into the septum to LA via the previous transseptal puncture. However the sheath and the pigtail in the LA was of acute angle to go into the additional lobe adjacent to the previous implant. Decision was made to proceed with
another trans-septal puncture at a much lower stick at the septum to provide for the better angle for implantation.
Under fluoroscopic, hemodynamic and KATY ultrasound guidance, left atrium was cannulated by applying the radiofrequency energy. The right atrial and left atrial pressure was monitored. A guide wire was placed and was advanced into the left superior
pulmonary vein. Both the sheath and the dilator was advanced into the left atrium. The dilator was withdrawn. Blood was aspirated from the sheath and arterial blood confirmed. The sheath was flushed. Saline injection noted into the left atrium on
KATY. The LA pressure was recorded. The saline injection was noted in the LA on the KATY. A curved pig tail was advanced over the guide wire into the left atrium and the wire was removed.
Left atrial appendage atriography:
The pigtail was advanced into the DENNIS and was confirmed on fluoroscopy and KATY. The contrast was injected and the DENNIS shape was recorded in GONZALES /Caudal view (5/25 degrees). The previous watchman and the additional lobe were imaged and measured. The
size of the uncovered DENNIS lobe was again checked and confirmed reviewing the KATY and the fluoroscopy along with previously obtained CT scan images.
Watchman Deployment:
The Watchman delivery sheath was advanced into the DENNIS over the pigtail till the right marker was at the location of the orifice line marked on the screen. The pigtail was removed and the Watchman delivery system was advanced through the sheath into
the DENNIS till it was aligned with the outer sheath marker inside the DENNIS. The watchman sheath was clicked with the outer sheath. Once acceptable location achieved, the outer sheath was pulled back keeping the device steady at the DENNIS location till a
ball of the device was formed under fluoroscopic guidance. The whole system was advanced further into the DENNIS till adequate depth is achieved into the DENNIS.� The DENNIS occluder was deployed and expanded adequately anchoring to the DENNIS. The device was
kept anchored with stable pressure to that location for 10 seconds.
The KATY image confirmed adequate expansion. The tug test was done that showed the device is anchored well and is not able to come out. The compression was 18% and 20% on the three sides. There was no significant leak noted on the Doppler via KATY.
A contrast injection was given into the LA at the mouth of the Watchman devices. There was no leak noted. Adequate compression of the devices and coverage of the DENNIS anatomy noted.
The device was deployed by unscrewing the Watchman device and releasing from the connecting wire. The wire was pulled back into the sheath and the sheath was pulled out of the LA.
Implanted device:
WATCHMAN FLX Pro � 20mm
Procedure End
KATY study was done again that showed no epicardial accumulation that was unchanged from earlier. A repeated images showed no change in the pericardial space. No complications noted.
Following the completion of the deployment, catheters were removed. Protamine 40 mg was given at the end of the procedure and ACT was checked repeatedly. The sheath was removed and hemostasis achieved with Figure of 8 suture and manual compression
after acceptable ACT is achieved.
Left atrial Pressure:
Mean LA pressure was 14mmHg
Estimated Blood loss:
10 cc
Specimens Removed:
None.
Implants / Devices:
None
Urine output:
None
Packs / Drains/ Tubes:
None
Instrument / Sponge Count Correct:
Yes
Complications of the Procedure:
None
Condition of Patient at Time of Transfer:
Hemodynamically stable with no neurological or vascular compromise.
Summary:
Successful implantation of the left atrial occlusion device (WATCHMAN FLX Pro� 20mm) in the uncovered lobe of the DENNIS with previously implanted 31 mm device.
Post procedure Plan for anticoagulation:
Continue Pradaxa 150 mg BID for 3 months.
In 3 months, based on KATY, will plan to discontinue Pradaxa and start ASA 81 mg indefinitely.
--- NOTE | 2025-01-05 14:09 | W.DS.TRANS ---
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
-
Discharge Instructions:
Discharge Diagnosis/Procedures Watchman device implant
Diet Low Cholesterol,Diabetic, Carb Controlled
Driving Restrictions No driving for 24 hours
Instructions:
Stand-Alone Forms: DC Instructions- Cath/EP Lab
Changes to Home Medications: No
Discharge Medications:
DC Medications w/original date entered in [employer]
montelukast 10 mg tablet 10 mg PO DAILY Allergies 11/18/18
fluticasone fur. 100 mcg-umeclid 62.5 mcg-vilant 25 mcg inhalat.powder (Trelegy Ellipta) 1 inh inhalation HS Lung/breathing issues 06/12/22
tamsulosin 0.4 mg capsule 0.4 mg PO HS 06/17/24
albuterol sulfate 90 mcg/actuation aerosol inhaler 2 puff inhalation QID PRN SOB 06/19/24
atorvastatin 80 mg tablet 80 mg PO DAILY@1400 06/19/24
fluticasone propionate 50 mcg/actuation nasal spray,suspension 1 spray intranasal HS PRN Nasal Congestion 06/19/24
dabigatran etexilate 150 mg capsule (Pradaxa) 150 mg PO BID 08/06/24
furosemide 20 mg tablet 20 mg PO DAILY@1500 11/16/24
Home Medication Changes
Pending Results: No
[2025-01-05 14:39] LABS: ACT-LR - POC > 397 Seconds (116-155)
--- NOTE | 2025-01-06 15:41 | PTCARENOTE ---
1st attempt made to call pt for post-procedure call back. Pt did not answer. No damián plascencia. Will attempt second call tomorrow and leave message if necessary.
== END 2025-01-05 16:00 | disposition home or self-care (01) | DRG 274 ==
LOC: CATH-IN 05:52
PROVIDERS: Internal Medicine Cardiovascular Disease; ADMITTING PHYSICIAN Student in an Organized Health Care Education/Training Program; FAMILY PHYSICIAN Family Medicine
PROC: B246ZZ4 Ultrasonography of Right and Left Heart, Transesophageal (ICD-10-PCS; 2025-01-05)
PROC: 02L73DK Occlusion of Left Atrial Appendage with Intraluminal Device, Percutaneous Approach (ICD-10-PCS; 2025-01-05)
PROC: B24CZZ4 Ultrasonography of Pericardium, Transesophageal (ICD-10-PCS; 2025-01-05)
DX: I48.21 Permanent atrial fibrillation (principal); Z00.6 Encounter for examination for normal comparison and control in clinical research program; I31.39 Other pericardial effusion (noninflammatory); M48.56XA Collapsed vertebra, not elsewhere classified, lumbar region, initial encounter for fracture; G51.0 Bell's palsy; E78.00 Pure hypercholesterolemia, unspecified; I10 Essential (primary) hypertension; I25.10 Atherosclerotic heart disease of native coronary artery without angina pectoris; I08.3 Combined rheumatic disorders of mitral, aortic and tricuspid valves; J45.30 Mild persistent asthma, uncomplicated; D64.9 Anemia, unspecified; D69.6 Thrombocytopenia, unspecified; D72.819 Decreased white blood cell count, unspecified; D73.4 Cyst of spleen; N40.0 Benign prostatic hyperplasia without lower urinary tract symptoms; Z79.51 Long term (current) use of inhaled steroids; Z92.3 Personal history of irradiation; Z86.73 Personal history of transient ischemic attack (TIA), and cerebral infarction without residual deficits; Z85.46 Personal history of malignant neoplasm of prostate; Z79.01 Long term (current) use of anticoagulants; Z95.818 Presence of other cardiac implants and grafts; Z79.899 Other long term (current) drug therapy
CPT/HCPCS: 33340; 36415; 80053; 85025; 85347; 85610; 86850; 86900; 86901; 93005; 93355; C1894; Q9967

== ENCOUNTER → 2025-03-29 10:48 | Outpatient (REF) | payer MEDICARE, OTHER, SELFPAY | LOC: SDSPAT 10:48 | PROVIDERS: ATTENDING PHYSICIAN Internal Medicine Cardiovascular Disease; FAMILY PHYSICIAN Family Medicine; OTHER PHYSICIAN Internal Medicine Cardiovascular Disease | DX: I48.21 Permanent atrial fibrillation (principal) | CPT/HCPCS: 93005 ==

== ENCOUNTER 2025-04-07 06:45 | Day surgery (SDC) | payer MEDICARE, OTHER, SELFPAY ==
[2025-03-29 10:57] VITALS: BMI 26.1
== END 2025-04-07 08:41 | disposition home or self-care (01) ==
LOC: CATH 06:45
PROVIDERS: ATTENDING PHYSICIAN Internal Medicine Cardiovascular Disease; FAMILY PHYSICIAN Family Medicine; OTHER PHYSICIAN Internal Medicine Cardiovascular Disease
DX: Z09 Encounter for follow-up examination after completed treatment for conditions other than malignant neoplasm (principal); I48.19 Other persistent atrial fibrillation; Z79.01 Long term (current) use of anticoagulants; Z86.73 Personal history of transient ischemic attack (TIA), and cerebral infarction without residual deficits; I10 Essential (primary) hypertension; E78.5 Hyperlipidemia, unspecified; Z90.79 Acquired absence of other genital organ(s); N40.0 Benign prostatic hyperplasia without lower urinary tract symptoms; J45.909 Unspecified asthma, uncomplicated; R91.1 Solitary pulmonary nodule; Z79.899 Other long term (current) drug therapy; Z86.018 Personal history of other benign neoplasm; Z95.9 Presence of cardiac and vascular implant and graft, unspecified; I08.3 Combined rheumatic disorders of mitral, aortic and tricuspid valves; Z95.818 Presence of other cardiac implants and grafts
CPT/HCPCS: 93312; 93320; 93325